=== PATIENT | male | born 1970 | race Caucasian/White ===

== ENCOUNTER 2016-07-24 08:52 | Emergency (ER) | payer OTHER ==
[~2016-07-24] VITALS: Ht 180.3 cm; Wt 68.5 kg
[~2016-07-24 08:52] MED LIST: TRAZODONE HCL100 MG PO; WELLBUTRIN XL300 MG PO
[2016-07-24 09:33] LABS: HEMATOCRIT 49.9 % (38.0-50.0); MCH 30.9 PG (29.0-34.0); MCHC 32.9 G/DL (30.0-36.0); MCV 94.2 FL (86-99); MEAN PLAT.VOLUME 11.7 uM^3 (9.0-12.4); PLATELET COUNT 222 K/uL (156-360); RBC DIS.WIDTH-CV 12.7 % (11.8-14.6); RBC DIS.WIDTH-SD 44.2 % (39-53); WHITE BLOOD COUNT 11.6 K/uL (4.1-10.2)
[2016-07-24 09:46] LABS: CHLORIDE 107 mEq/L (99-109); POTASSIUM 4.3 mEq/L (3.7-5.4); SODIUM 143 mEq/L (136-147)
[2016-07-24 09:48] LABS: GLUCOSE 87 mg/dL (70-99)
[2016-07-24 09:49] LABS: ANION GAP 10 MEQ/L (2-14)
[2016-07-24 09:52] LABS: GFR ESTIMATE (CALCULATED) > 59 mL/min/
[2016-07-24 09:53] LABS: UREA NITROGEN (BUN) 12 mg/dL (9-23)
[2016-07-24 10:21] LABS: ADD MIUA? NO; BILIRUBIN NEGATIVE; BLOOD NEGATIVE; COLOR YELLOW ((YELLOW)); GLUCOSE (STRIP) NEGATIVE; KETONES NEGATIVE; LEUKOCYTES NEGATIVE; NITRITE NEGATIVE; PROTEIN (STRIP) NEGATIVE; SPECIFIC GRAVITY 1.015 (1.000-1.030); UCUL ADDED? NO; UROBILINOGEN 0.2 MG/DL (0.2-1.0)
[2016-07-24] MEDS ORDERED: NAPROSYN500 MG PO (11:11)
[2016-07-24] MEDS ORDERED: ULTRAM50 MG PO (11:11)
[2016-07-24 12:03] VITALS: BP 118/74
== END 2016-07-24 12:04 | disposition home or self-care (01) ==
LOC: EME 08:52
DX: N13.30 Unspecified hydronephrosis (principal); M54.5 Low back pain; F17.200 Nicotine dependence, unspecified, uncomplicated
CPT/HCPCS: 74176; 80048; 81003; 85027; 87086; 99281; 99283

== ENCOUNTER 2017-07-21 07:58 | Emergency (ER) | payer OTHER ==
[~2017-07-21] VITALS: Ht 180.3 cm; Wt 68.6 kg
[~2017-07-21 07:58] MED LIST changes: +NAPROSYN500 MG PO; +ULTRAM50 MG PO
[2017-07-21 08:53] LABS: HEMATOCRIT 46.6 % (38.0-50.0); HEMOGLOBIN 15.8 G/DL (12.5-16.6); MCH 31.3 PG (29.0-34.0); MCHC 33.9 G/DL (30.0-36.0); MCV 92.3 FL (86-99); PLATELET COUNT 234 K/uL (156-360); RBC DIS.WIDTH-CV 12.6 % (11.8-14.6); RBC DIS.WIDTH-SD 42.6 % (39-53); RED BLOOD COUNT 5.05 M/uL (4.00-5.50); WHITE BLOOD COUNT 17.5 K/uL (4.1-10.2)
[2017-07-21 09:00] LABS: CHLORIDE 104 mEq/L (99-109); POTASSIUM 4.5 mEq/L (3.7-5.4); SODIUM 140 mEq/L (136-147)
[2017-07-21 09:02] LABS: GLUCOSE 94 mg/dL (70-99)
[2017-07-21 09:05] LABS: CREATININE 0.9 mg/dL (0.6-1.3); GFR ESTIMATE (CALCULATED) > 59 mL/min/ (58.99-99999)
[2017-07-21 09:06] LABS: UREA NITROGEN (BUN) 13 mg/dL (9-23)
[2017-07-21 12:33] VITALS: BP 94/62
== END 2017-07-21 12:34 | disposition home or self-care (01) ==
LOC: EME 07:58
PROVIDERS: Physician Assistant
DX: H57.12 Ocular pain, left eye (principal); R51 Headache; M25.531 Pain in right wrist; F17.200 Nicotine dependence, unspecified, uncomplicated; Z88.0 Allergy status to penicillin
CPT/HCPCS: 73110; 80048; 85027; 93971; 99281; 99284; J1200; J1885; J2765; J7030